=== PATIENT | male | born 1950 | race Caucasian/White ===

== ENCOUNTER 2019-01-07 13:46 | Inpatient (IN) ==
[2019-01-07] MEDS ORDERED: ONDANSETRON 4 MG/2 ML VIAL IV PRN (15:12)
[2019-01-07] MEDS ORDERED: ACETAMINOPHEN 325 MG TABLET PO PRN (15:12)
[2019-01-07] MEDS ORDERED: DEXTROSE 10% 250 ML BAG IV PRN (15:12)
[2019-01-07] MEDS ORDERED: GLUCAGON 1 MG VIAL IM PRN (15:12)
[2019-01-07] MEDS ORDERED: MAGNESIUM SULF RIDER 4 GM in PREMIX 1 EACH IV PRN (15:15)
[2019-01-07] MEDS ORDERED: MAGNESIUM SULF RIDER 2 GM in PREMIX 1 EACH IV PRN (15:15)
[2019-01-07 15:41] LABS: ABG Base Excess -8.6 MMOL/L (-2.5-2.5); ABG HCO3 17.6 MMOL/L (20-26); ABG Oxygen Saturation 98.5 % (95-100); ABG PCO2 26.1 MM HG (35-48); ABG PH 7.371 (7.35-7.45); ABG TCO2 13.1 MMOL/L (23-27); Allen Test Positive; Pt O2 Delivery Device Room Air
[2019-01-07] MEDS: INSULIN LISPRO 100 UNIT/ML SUBCUT SCH ×2 (17:06→22:27)
[2019-01-07 20:09] LABS: Apearance,Urine CLEAR (Clear); Bilirubin,Urine Negative (Negative); Blood, Urine Small mg/dL (Negative); Glucose,Urine (UA) >=500 mg/dL (Negative); Granular Casts,Urine 5 /LPF (0-1); Ketones,Urine 80 mg/dL (Negative); Mucus,Urine Occasional /LPF (Occasional); Nitrite,Urine Negative (Negative); Protein,Urine Negative; RBC,Urine <1 /HPF (0-4); Urine Color Straw (Yellow); Urine Urobilinogen < 2.0 EU/DL (0.2-1.0); WBC,Urine <1 /HPF (0-6)
[2019-01-07 20:11] LABS: Barbiturates Screen,Urine Negative (Negative); Benzodiazepines Screen,Urine Negative (Negative); Cannabinoid Screen,Urine Negative (Negative); Opiate Screen,Urine Negative (Negative); Phencyclidine Screen,Urine Negative (Negative)
[2019-01-07 20:51] LABS: Blood Urea Nitrogen 13 MG/DL (7-18); Calcium 7.4 MG/DL (8.5-10.1); Estimated Glom Filtration Rate 77 ML/MIN; Glucose 492 MG/DL (74-106); Osmolality,Calculated 259.5 MOS/KG (273-304)
[2019-01-07 20:56] LABS: Troponin I < 0.015 NG/ML (0.00-0.045)
[2019-01-07] MEDS: SODIUM CHLORIDE 0.9% 1,000 ML IV SCH (21:28)
[2019-01-07] MEDS: DOCUSATE SODIUM 100 MG CAPSULE PO SCH (22:33)
[2019-01-08] MEDS: SODIUM CHLORIDE 0.9% 1,000 ML IV SCH ×3 (00:57→20:56)
[2019-01-08] MEDS: INSULIN LISPRO 100 UNIT/ML SUBCUT SCH ×5 (01:14→22:12)
[2019-01-08 06:44] LABS: Albumin 2.7 G/DL (3.4-5.0); Bilirubin,Total 0.7 MG/DL (0.2-1.0); Osmolality,Calculated 257.2 MOS/KG (273-304); Total Protein 5.6 G/DL (6.4-8.3)
[2019-01-08 06:57] LABS: Basophils # 0.1 10*3/uL (0.0-0.2); Basophils % 0.5 % (0.0-0.8); Eosinophils # 0.2 10*3/uL (0.0-0.87); Eosinophils % 1.7 % (0.00-10.9); Hemoglobin 12.8 GM/DL (14.0-18.0); Immature Granulocytes % 1.1 %; Lymphocytes # 2.4 10*3/uL (1.4-4.0); Lymphocytes % 25.6 % (21.2-54.2); Mean Corpuscular HGB Conc 37.6 GM/DL (32-36); Mean Corpuscular Volume 90.9 FL (87-102); Monocytes % 10.3 % (1.7-12.7); Neutrophils % 60.8 % (38.7-73.9); Platelet Count 130 T/CUMM (130-400); Red Blood Count 3.74 MC/CUMM (3.8-5.5); Red Cell Distribution Width 11.5 % (9.3-17.3); White Blood Count 9.4 T/CUMM (4-12)
[2019-01-08] MEDS: POTASSIUM CHLORIDE 20 MEQ TABLET PO PRN ×2 (06:58→08:18)
[2019-01-08 07:07] LABS: Microcytosis Slight; Platelet Estimate Adequate
[2019-01-08] MEDS: DOCUSATE SODIUM 100 MG CAPSULE PO SCH ×2 (08:18→22:06)
[2019-01-08] MEDS: PANTOPRAZOLE 40 MG TABLET PO SCH (08:18)
[2019-01-08] MEDS ORDERED: POTASSIUM CHLORIDE 20 MEQ TABLET PO ONE (08:59)
[2019-01-08] MEDS: ASCORBIC ACID 500 MG TABLET PO SCH ×2 (12:42→22:03)
[2019-01-08] MEDS: ASPIRIN EC 325 MG TABLET PO SCH (12:42)
[2019-01-09] MEDS: SODIUM CHLORIDE 0.9% 1,000 ML IV SCH ×4 (01:55→16:48)
[2019-01-09 04:57] LABS: Basophils % 0.6 % (0.0-0.8); Eosinophils # 0.1 10*3/uL (0.0-0.87); Eosinophils % 1.8 % (0.00-10.9); Hematocrit 31.6 VOL% (42.0-52.0); Hemoglobin 11.7 GM/DL (14.0-18.0); Immature Granulocytes % 1.3 %; Immature Granulocytes Absolute 0.08 #; Lymphocytes # 1.8 10*3/uL (1.4-4.0); Lymphocytes % 29.5 % (21.2-54.2); Mean Corpuscular Volume 92.1 FL (87-102); Mean Platelet Volume 12.1 FL (9.6-12.0); Monocytes % 10.9 % (1.7-12.7); Neutrophils % 55.9 % (38.7-73.9); Platelet Count 107 T/CUMM (130-400); Red Blood Count 3.43 MC/CUMM (3.8-5.5); Red Cell Distribution Width 11.6 % (9.3-17.3); White Blood Count 6.2 T/CUMM (4-12)
[2019-01-09 05:22] LABS: Osmolality,Calculated 264.7 MOS/KG (273-304)
[2019-01-09] MEDS: POTASSIUM CHLORIDE 20 MEQ TABLET PO PRN (06:40)
[2019-01-09 07:06] LABS: Albumin 2.4 G/DL (3.4-5.0); Bilirubin,Total 0.6 MG/DL (0.2-1.0); Calcium 7.2 MG/DL (8.5-10.1); Osmolality,Calculated 260.9 MOS/KG (273-304); Total Protein 4.7 G/DL (6.4-8.3)
[2019-01-09] MEDS ORDERED: LACTATED RINGERS 1,000 ML IV SCH (08:00)
[2019-01-09] MEDS: INSULIN LISPRO 100 UNIT/ML SUBCUT SCH ×4 (08:28→22:02)
[2019-01-09] MEDS ORDERED: LIDOCAINE 2% 5 ML VIAL ONE (09:00)
[2019-01-09] MEDS ORDERED: PROPOFOL 200 MG/20 ML VIAL IV ONE (09:00)
[2019-01-09] MEDS ORDERED: GLUCAGON 1 MG VIAL IM PRN (12:14)
[2019-01-09] MEDS ORDERED: DEXTROSE 50% 25 GM/50 ML VIAL IV PRN (12:14)
[2019-01-09] MEDS ORDERED: FLUCONAZOLE 200 MG TABLET PO ONE (12:56)
[2019-01-09] MEDS: POTASSIUM CHLORIDE 20 MEQ TABLET PO SCH ×3 (15:06→22:02)
[2019-01-09] MEDS: DOCUSATE SODIUM 100 MG CAPSULE PO SCH ×2 (15:15→22:02)
[2019-01-09] MEDS: ASPIRIN EC 325 MG TABLET PO SCH (15:15)
[2019-01-09] MEDS: ROSUVASTATIN 20 MG TABLET PO SCH (15:15)
[2019-01-09] MEDS: ASCORBIC ACID 500 MG TABLET PO SCH ×2 (15:16→22:02)
[2019-01-09] MEDS: PANTOPRAZOLE 40 MG TABLET PO SCH (15:16)
[2019-01-09] MEDS: glipiZIDE 10 MG TABLET PO SCH (16:46)
[2019-01-10] MEDS: SODIUM CHLORIDE 0.9% 1,000 ML IV SCH ×2 (00:50→08:04)
[2019-01-10 07:02] LABS: Basophils # 0.1 10*3/uL (0.0-0.2); Basophils % 0.9 % (0.0-0.8); Eosinophils # 0.1 10*3/uL (0.0-0.87); Eosinophils % 1.9 % (0.00-10.9); Hemoglobin 11.6 GM/DL (14.0-18.0); Immature Granulocytes % 1.5 %; Immature Granulocytes Absolute 0.09 #; Lymphocytes # 1.7 10*3/uL (1.4-4.0); Lymphocytes % 29.6 % (21.2-54.2); Mean Corpuscular HGB Conc 36.3 GM/DL (32-36); Mean Corpuscular Volume 94.7 FL (87-102); Mean Platelet Volume 12.2 FL (9.6-12.0); Monocytes % 11.8 % (1.7-12.7); Neutrophils % 54.3 % (38.7-73.9); Platelet Count 107 T/CUMM (130-400); Red Blood Count 3.38 MC/CUMM (3.8-5.5); White Blood Count 5.9 T/CUMM (4-12)
[2019-01-10 07:22] LABS: Calcium 7.3 MG/DL (8.5-10.1); Osmolality,Calculated 273.1 MOS/KG (273-304)
[2019-01-10] MEDS: ASPIRIN EC 325 MG TABLET PO SCH (08:05)
[2019-01-10] MEDS: glipiZIDE 10 MG TABLET PO SCH ×2 (08:05→18:26)
[2019-01-10] MEDS: DOCUSATE SODIUM 100 MG CAPSULE PO SCH ×2 (08:05→21:22)
[2019-01-10] MEDS: ROSUVASTATIN 20 MG TABLET PO SCH (08:05)
[2019-01-10] MEDS: INSULIN LISPRO 100 UNIT/ML SUBCUT SCH ×4 (08:05→21:22)
[2019-01-10] MEDS: FLUCONAZOLE 100 MG TABLET PO SCH (08:06)
[2019-01-10] MEDS: ASCORBIC ACID 500 MG TABLET PO SCH ×2 (08:06→21:22)
[2019-01-10] MEDS: POTASSIUM CHLORIDE 20 MEQ TABLET PO SCH ×3 (08:06→21:22)
[2019-01-10] MEDS: PANTOPRAZOLE 40 MG TABLET PO SCH (08:06)
[2019-01-10] MEDS: APIXABAN 5 MG TABLET PO SCH ×2 (14:18→21:22)
[2019-01-11 05:23] LABS: Basophils % 0.7 % (0.0-0.8); Eosinophils # 0.2 10*3/uL (0.0-0.87); Eosinophils % 2.7 % (0.00-10.9); Hematocrit 32.3 VOL% (42.0-52.0); Hemoglobin 11.7 GM/DL (14.0-18.0); Immature Granulocytes Absolute 0.06 #; Lymphocytes # 1.6 10*3/uL (1.4-4.0); Lymphocytes % 26.2 % (21.2-54.2); Mean Corpuscular HGB Conc 36.2 GM/DL (32-36); Mean Corpuscular Volume 94.2 FL (87-102); Mean Platelet Volume 12.3 FL (9.6-12.0); Monocytes % 13.1 % (1.7-12.7); Neutrophils % 56.3 % (38.7-73.9); Platelet Count 119 T/CUMM (130-400); Red Blood Count 3.43 MC/CUMM (3.8-5.5); Red Cell Distribution Width 11.9 % (9.3-17.3)
[2019-01-11 05:44] LABS: Calcium 7.5 MG/DL (8.5-10.1); Osmolality,Calculated 274.2 MOS/KG (273-304)
[2019-01-11 05:49] LABS: Albumin 2.4 G/DL (3.4-5.0); Bilirubin,Direct 0.16 MG/DL (0.0-0.20); Bilirubin,Indirect 0.4 MG/DL (0.0-1.0); Bilirubin,Total 0.6 MG/DL (0.2-1.0); Total Protein 5.2 G/DL (6.4-8.3)
[2019-01-11] MEDS ORDERED: FLECAINIDE 50 MG TABLET PO SCH (09:00)
[2019-01-11] MEDS: INSULIN LISPRO 100 UNIT/ML SUBCUT SCH ×2 (09:47→11:52)
[2019-01-11] MEDS: ASPIRIN EC 325 MG TABLET PO SCH (09:48)
[2019-01-11] MEDS: glipiZIDE 10 MG TABLET PO SCH (09:48)
[2019-01-11] MEDS: FLUCONAZOLE 100 MG TABLET PO SCH (09:48)
[2019-01-11] MEDS: PANTOPRAZOLE 40 MG TABLET PO SCH (09:48)
[2019-01-11] MEDS: APIXABAN 5 MG TABLET PO SCH (09:48)
[2019-01-11] MEDS: ASCORBIC ACID 500 MG TABLET PO SCH (09:48)
[2019-01-11] MEDS: ROSUVASTATIN 20 MG TABLET PO SCH (09:48)
[2019-01-11] MEDS: POTASSIUM CHLORIDE 20 MEQ TABLET PO SCH (09:48)
[2019-01-11] MEDS: DOCUSATE SODIUM 100 MG CAPSULE PO SCH (09:48)
[2019-01-11 11:57] VITALS: BP 113/81
== END 2019-01-11 13:52 | disposition home or self-care (01) | DRG 638 ==
LOC: N.2W → N.TELES 16:59 → MERGE 01-08 09:14
PROVIDERS: ADMIT Family Medicine; ATTEND Family Medicine

== ENCOUNTER 2019-01-15 10:26 | Inpatient (IN) ==
[2019-01-15] MEDS ORDERED: AMIODARONE INJ 300 MG in DEXTROSE 5% 100 ML IV ONE (10:32)
[2019-01-15] MEDS ORDERED: MAGNESIUM SULF RIDER 2 GM in PREMIX 1 EACH IV STA (10:33)
[2019-01-15] MEDS ORDERED: AMIODARONE 450 MG/9 ML VIAL IV ONE (10:35)
[2019-01-15 10:39] LABS: Basophils # 0.1 10*3/uL (0.0-0.2); Basophils % 0.6 % (0.0-0.8); Eosinophils # 0.1 10*3/uL (0.0-0.87); Eosinophils % 1.1 % (0.00-10.9); Hematocrit 40.9 VOL% (42.0-52.0); Hemoglobin 13.1 GM/DL (14.0-18.0); Immature Granulocytes Absolute 0.36 #; Lymphocytes # 4.2 10*3/uL (1.4-4.0); Lymphocytes % 46.2 % (21.2-54.2); Mean Corpuscular Volume 108.5 FL (87-102); Mean Platelet Volume 11.1 FL (9.6-12.0); Monocytes % 11.7 % (1.7-12.7); NRBC # 0.08 10*3/uL; Neutrophils % 36.4 % (38.7-73.9); Platelet Count 154 T/CUMM (130-400); Red Blood Count 3.77 MC/CUMM (3.8-5.5); Red Cell Distribution Width 13.2 % (9.3-17.3)
[2019-01-15 11:00] LABS: Atypical Lymphocytes Few; Band Neutrophils 2 % (0-10); Eosinophils 1 % (0-10); Lymphocytes 55 % (20-55); Macrocytosis Slight; Nucleated Red Blood Cells 3 (0-5); Segmented Neutrophils 36 % (50-85); Total Cells Counted 100
[2019-01-15] MEDS ORDERED: AMIODARONE INJ 450 MG in DEXTROSE 5% 241 ML IV SCH (11:00)
[2019-01-15 11:20] LABS: Apearance,Urine CLEAR (Clear); Bilirubin,Urine Negative (Negative); Blood, Urine Negative (Negative); Glucose,Urine (UA) >=500 mg/dL (Negative); Hyaline Casts,Urine 1 /LPF (0-3); Ketones,Urine Negative (Negative); Nitrite,Urine Negative (Negative); Protein,Urine Negative; RBC,Urine 1 /HPF (0-4); Sperm,Urine Few /HPF (Negative); Urine Color Yellow (Yellow); Urine Specific Gravity 1.017 (1.001-1.035); Urine Urobilinogen < 2.0 EU/DL (0.2-1.0); WBC,Urine 1 /HPF (0-6)
[2019-01-15] MEDS ORDERED: SODIUM BICARBONATE 50 MEQ/50 ML VIAL IV STA (11:21)
[2019-01-15 11:26] LABS: Barbiturates Screen,Urine Negative (Negative); Benzodiazepines Screen,Urine Negative (Negative); Cannabinoid Screen,Urine Negative (Negative); Opiate Screen,Urine Negative (Negative); Phencyclidine Screen,Urine Negative (Negative)
[2019-01-15 11:30] LABS: Albumin 2.6 G/DL (3.4-5.0); Bilirubin,Total 0.4 MG/DL (0.2-1.0); Osmolality,Calculated 281.2 MOS/KG (273-304); Total Protein 6.1 G/DL (6.4-8.3)
[2019-01-15] MEDS ORDERED: SODIUM CHLORIDE 0.9% 2,000 ML IV STA (11:47)
[2019-01-15] MEDS ORDERED: LIDOCAINE 1% 20 ML VIAL ONE (11:55)
[2019-01-15 12:17] LABS: ABG Base Excess -12.8 MMOL/L (-2.5-2.5); ABG HCO3 14.6 MMOL/L (20-26); ABG Oxygen Saturation 97.5 % (95-100); ABG PCO2 52.7 MM HG (35-48); ABG TCO2 15.9 MMOL/L (23-27)
[2019-01-15 12:24] LABS: ABG PH 7.119 (7.35-7.45)
[2019-01-15] MEDS ORDERED: GLUCAGON 1 MG VIAL IM PRN (12:25)
[2019-01-15] MEDS ORDERED: DEXTROSE 50% 25 GM/50 ML VIAL IV PRN (12:25)
[2019-01-15] MEDS ORDERED: TIROFIBAN 5,000 MCG/100 ML PREMIX IV ONE (12:37)
[2019-01-15] MEDS ORDERED: ENOXAPARIN 30 MG/0.3 ML SYRINGE ONE (12:37)
[2019-01-15] MEDS: CISATRACURIUM 200 MG in SODIUM CHLORIDE 0.9% 180 ML IV SCH (14:10)
[2019-01-15] MEDS: PROPOFOL 1,000 MG/100 ML BOTTLE IV SCH (14:11)
[2019-01-15] MEDS: NOREPINEPHRINE 8 MG in SODIUM CHLORIDE 0.9% 242 ML IV PRN ×2 (14:12→16:12)
[2019-01-15] MEDS: fentaNYL INJ 1,250 MCG in SODIUM CHLORIDE 0.9% 225 ML IV PRN (14:12)
[2019-01-15 14:29] LABS: CKMB % 3.9 %
[2019-01-15 14:34] LABS: Troponin I 1.09 NG/ML (0.00-0.045)
[2019-01-15] MEDS ORDERED: MAGNESIUM SULF RIDER 2 GM in PREMIX 1 EACH IV ONE (14:40)
[2019-01-15] MEDS ORDERED: MAGNESIUM SULF RIDER 2 GM in PREMIX 1 EACH IV PRN (14:44)
[2019-01-15] MEDS ORDERED: MAGNESIUM SULF RIDER 1 GM in PREMIX 1 EACH IV PRN (14:48)
[2019-01-15] MEDS ORDERED: PNEUMOCOCCAL VACCINE (13 VALENT) 0.5 ML SYRINGE IM ONE (14:55)
[2019-01-15 15:28] LABS: INR 1.2; PT Patient Result 12.7 SECS (9.6-12.2); Partial Thromboplastin Time 34.7 SECS (20.8-36.0)
[2019-01-15 15:56] LABS: Alcohol Patient Result Negative (Negative)
[2019-01-15 16:17] LABS: Basophils # 0.1 10*3/uL (0.0-0.2); Basophils % 0.3 % (0.0-0.8); Eosinophils % 0.1 % (0.00-10.9); Hematocrit 41.4 VOL% (42.0-52.0); Immature Granulocytes % 1.1 %; Immature Granulocytes Absolute 0.21 #; Lymphocytes # 1.2 10*3/uL (1.4-4.0); Lymphocytes % 6.2 % (21.2-54.2); Mean Corpuscular HGB Conc 33.8 GM/DL (32-36); Mean Corpuscular Volume 100.7 FL (87-102); Mean Platelet Volume 10.9 FL (9.6-12.0); Monocytes % 10.3 % (1.7-12.7); Platelet Count 208 T/CUMM (130-400); Red Blood Count 4.11 MC/CUMM (3.8-5.5); Red Cell Distribution Width 13.3 % (9.3-17.3); White Blood Count 19.3 T/CUMM (4-12)
[2019-01-15] MEDS: INSULIN REGULAR 100 UNIT/ML IV SCH ×3 (16:20→20:24)
[2019-01-15] MEDS: PANTOPRAZOLE 40 MG VIAL IV SCH (16:21)
[2019-01-15] MEDS: MINERAL OIL/PETROLATUM OPH OINT 3.5 GM TUBE BOTH EYES SCH ×2 (16:22→22:01)
[2019-01-15 17:05] LABS: CKMB % 4.4 %
[2019-01-15 17:10] LABS: Troponin I 2.33 NG/ML (0.00-0.045)
[2019-01-15 17:15] LABS: Calcium 8.2 MG/DL (8.5-10.1); Osmolality,Calculated 295.4 MOS/KG (273-304)
[2019-01-15] MEDS: AMIODARONE INJ 450 MG in DEXTROSE 5% 241 ML IV SCH (17:42)
[2019-01-15] MEDS ORDERED: PHENYLEPHRINE DRIP 40 MG/250 ML PREMIX IV PRN (18:16)
[2019-01-15] MEDS ORDERED: PHENYLEPHRINE DRIP 40 MG/250 ML PREMIX IV ONE (18:21)
[2019-01-15] MEDS ORDERED: DOPamine 800 MG/250 ML PREMIX IV ONE (19:14)
[2019-01-15] MEDS ORDERED: DOPamine 800 MG/250 ML PREMIX IV PRN (19:15)
[2019-01-15] MEDS ORDERED: SODIUM CHLORIDE 0.9% 1,000 ML IV ONE (19:15)
[2019-01-15 19:39] LABS: ABG Base Excess -5.4 MMOL/L (-2.5-2.5); ABG HCO3 19.8 MMOL/L (20-26); ABG Oxygen Saturation 87.9 % (95-100); ABG PCO2 45.5 MM HG (35-48); ABG PH 7.282 (7.35-7.45); ABG TCO2 19.1 MMOL/L (23-27)
[2019-01-15] MEDS ORDERED: HYDROCORTISONE 100 MG VIAL ONE (19:40)
[2019-01-15] MEDS ORDERED: ALBUMIN 25% 25 GM in PREMIX 1 EACH IV ONE (19:42)
[2019-01-15] MEDS: HYDROCORTISONE 100 MG VIAL IV SCH (19:45)
[2019-01-15 19:58] LABS: CKMB % 5.5 %
[2019-01-15 20:07] LABS: Troponin I 4.65 NG/ML (0.00-0.045)
[2019-01-15] MEDS ORDERED: CALCIUM GLUCONATE 2,000 MG in SODIUM CHLORIDE 0.9% 100 ML IV ONE (20:11)
[2019-01-15] MEDS: NOREPINEPHRINE 16 MG in SODIUM CHLORIDE 0.9% 234 ML IV PRN (20:19)
[2019-01-15] MEDS: PHENYLEPHRINE INJ 160 MG in SODIUM CHLORIDE 0.9% 234 ML IV PRN (20:34)
[2019-01-15 20:48] LABS: Calcium 7.2 MG/DL (8.5-10.1)
[2019-01-15 20:53] LABS: CKMB % 5.8 %
[2019-01-15 20:55] LABS: Troponin I 4.98 NG/ML (0.00-0.045)
[2019-01-15 20:57] LABS: Basophils % 0.2 % (0.0-0.8); Eosinophils % 0.1 % (0.00-10.9); Hematocrit 33.7 VOL% (42.0-52.0); Hemoglobin 11.4 GM/DL (14.0-18.0); Immature Granulocytes % 0.7 %; Immature Granulocytes Absolute 0.13 #; Lymphocytes # 1.7 10*3/uL (1.4-4.0); Lymphocytes % 9.3 % (21.2-54.2); Mean Corpuscular HGB Conc 33.8 GM/DL (32-36); Mean Corpuscular Volume 101.8 FL (87-102); Mean Platelet Volume 10.8 FL (9.6-12.0); Monocytes % 12.3 % (1.7-12.7); NRBC # 0.03 10*3/uL; Neutrophils % 77.4 % (38.7-73.9); Platelet Count 193 T/CUMM (130-400); Red Blood Count 3.31 MC/CUMM (3.8-5.5); Red Cell Distribution Width 13.2 % (9.3-17.3); White Blood Count 18.3 T/CUMM (4-12)
[2019-01-15 21:10] LABS: Albumin 2.3 G/DL (3.4-5.0); Bilirubin,Total 0.6 MG/DL (0.2-1.0); Calcium 7.7 MG/DL (8.5-10.1); Osmolality,Calculated 300.3 MOS/KG (273-304); Total Protein 4.8 G/DL (6.4-8.3)
[2019-01-15] MEDS: POTASSIUM CHLORIDE RIDER 20 MEQ in PREMIX 1 EACH IV PRN ×3 (21:29→23:52)
[2019-01-15 22:10] LABS: Basophils % 0.1 % (0.0-0.8); Eosinophils % 0.1 % (0.00-10.9); Hematocrit 34.3 VOL% (42.0-52.0); Hemoglobin 11.5 GM/DL (14.0-18.0); Immature Granulocytes % 0.6 %; Immature Granulocytes Absolute 0.09 #; Lymphocytes % 6.7 % (21.2-54.2); Mean Corpuscular HGB Conc 33.5 GM/DL (32-36); Mean Corpuscular Volume 103.3 FL (87-102); Mean Platelet Volume 10.8 FL (9.6-12.0); Monocytes % 10.5 % (1.7-12.7); NRBC # 0.02 10*3/uL; Platelet Count 155 T/CUMM (130-400); Red Blood Count 3.32 MC/CUMM (3.8-5.5); Red Cell Distribution Width 13.4 % (9.3-17.3); White Blood Count 15.6 T/CUMM (4-12)
[2019-01-15 22:15] LABS: INR 1.2; PT Patient Result 12.7 SECS (9.6-12.2); Partial Thromboplastin Time 31.2 SECS (20.8-36.0)
[2019-01-15] MEDS ORDERED: INSULIN REGULAR 100 UNIT/ML IV ONE (22:18)
[2019-01-16] MEDS: INSULIN REGULAR 100 UNIT/ML IV SCH ×3 (00:17→08:54)
[2019-01-16] MEDS: fentaNYL INJ 1,250 MCG in SODIUM CHLORIDE 0.9% 225 ML IV PRN ×3 (00:34→06:00)
[2019-01-16] MEDS: POTASSIUM CHLORIDE RIDER 10 MEQ in PREMIX 1 EACH IV PRN ×7 (00:49→18:23)
[2019-01-16] MEDS ORDERED: MEPERIDINE 25 MG/1 ML VIAL IV PRN (01:34)
[2019-01-16] MEDS: INSULIN REGULAR DRIP 100 ML IV PRN ×3 (01:47→20:40)
[2019-01-16] MEDS: CISATRACURIUM 200 MG in SODIUM CHLORIDE 0.9% 180 ML IV SCH ×3 (02:46→15:16)
[2019-01-16] MEDS: POTASSIUM CHLORIDE RIDER 20 MEQ in PREMIX 1 EACH IV PRN ×3 (03:40→16:19)
[2019-01-16] MEDS: PROPOFOL 1,000 MG/100 ML BOTTLE IV SCH ×3 (03:53→19:34)
[2019-01-16 04:24] LABS: ABG Base Excess -9.3 MMOL/L (-2.5-2.5); ABG PCO2 43.7 MM HG (35-48); ABG PH 7.228 (7.35-7.45); ABG PO2 75.9 MM HG (80-95); ABG TCO2 16.5 MMOL/L (23-27)
[2019-01-16] MEDS: PHENYLEPHRINE INJ 160 MG in SODIUM CHLORIDE 0.9% 234 ML IV PRN ×2 (04:28→14:57)
[2019-01-16 04:39] LABS: Basophils % 0.2 % (0.0-0.8); Hematocrit 33.5 VOL% (42.0-52.0); Hemoglobin 11.2 GM/DL (14.0-18.0); Immature Granulocytes % 0.7 %; Immature Granulocytes Absolute 0.12 #; Lymphocytes # 0.9 10*3/uL (1.4-4.0); Lymphocytes % 5.2 % (21.2-54.2); Mean Corpuscular HGB Conc 33.4 GM/DL (32-36); Mean Corpuscular Volume 103.1 FL (87-102); Mean Platelet Volume 11.1 FL (9.6-12.0); Monocytes % 9.1 % (1.7-12.7); Neutrophils % 84.8 % (38.7-73.9); Platelet Count 163 T/CUMM (130-400); Red Blood Count 3.25 MC/CUMM (3.8-5.5); Red Cell Distribution Width 13.5 % (9.3-17.3); White Blood Count 17.1 T/CUMM (4-12)
[2019-01-16 04:47] LABS: Calcium 7.4 MG/DL (8.5-10.1); Osmolality,Calculated 311.4 MOS/KG (273-304)
[2019-01-16 04:48] LABS: INR 1.1; PT Patient Result 11.8 SECS (9.6-12.2); Partial Thromboplastin Time 29.4 SECS (20.8-36.0)
[2019-01-16] MEDS: NOREPINEPHRINE 16 MG in SODIUM CHLORIDE 0.9% 234 ML IV PRN ×2 (05:31→21:19)
[2019-01-16] MEDS: HYDROCORTISONE 100 MG VIAL IV SCH ×3 (06:12→20:36)
[2019-01-16] MEDS: CEFEPIME 1,000 MG in SODIUM CHLORIDE 0.9% 100 ML IV SCH ×4 (07:09→23:40)
[2019-01-16] MEDS: MINERAL OIL/PETROLATUM OPH OINT 3.5 GM TUBE BOTH EYES SCH ×3 (08:39→20:42)
[2019-01-16] MEDS: PANTOPRAZOLE 40 MG VIAL IV SCH (08:40)
[2019-01-16] MEDS: AMIODARONE INJ 450 MG in DEXTROSE 5% 241 ML IV SCH (08:50)
[2019-01-16] MEDS: SODIUM BICARB INJ 100 MEQ in SODIUM CHLORIDE 0.45% 1,000 ML IV SCH (09:06)
[2019-01-16] MEDS: fentaNYL INJ 2,500 MCG in SODIUM CHLORIDE 0.9% 450 ML IV PRN ×3 (09:10→23:06)
[2019-01-16 09:39] LABS: Basophils % 0.2 % (0.0-0.8); Hematocrit 33.3 VOL% (42.0-52.0); Hemoglobin 11.1 GM/DL (14.0-18.0); Immature Granulocytes % 0.6 %; Immature Granulocytes Absolute 0.09 #; Mean Corpuscular HGB Conc 33.3 GM/DL (32-36); Mean Corpuscular Volume 102.5 FL (87-102); Monocytes % 6.4 % (1.7-12.7); Neutrophils % 86.8 % (38.7-73.9); Platelet Count 167 T/CUMM (130-400); Red Blood Count 3.25 MC/CUMM (3.8-5.5); Red Cell Distribution Width 13.7 % (9.3-17.3); White Blood Count 15.9 T/CUMM (4-12)
[2019-01-16 09:49] LABS: INR 1.1; PT Patient Result 11.5 SECS (9.6-12.2); Partial Thromboplastin Time 29.4 SECS (20.8-36.0)
[2019-01-16 10:13] LABS: CKMB % 8.9 %
[2019-01-16 10:14] LABS: Calcium 7.2 MG/DL (8.5-10.1)
[2019-01-16 10:16] LABS: Troponin I 2.8 NG/ML (0.00-0.045)
[2019-01-16 12:57] LABS: ABG Base Excess -9.1 MMOL/L (-2.5-2.5); ABG HCO3 15.4 MMOL/L (20-26); ABG PH 7.343 (7.35-7.45); ABG PO2 121.7 MM HG (80-95); ABG TCO2 16.3 MMOL/L (23-27)
[2019-01-16 15:48] LABS: Basophils % 0.1 % (0.0-0.8); Hematocrit 30.7 VOL% (42.0-52.0); Hemoglobin 10.5 GM/DL (14.0-18.0); Immature Granulocytes % 0.6 %; Immature Granulocytes Absolute 0.08 #; Lymphocytes # 1.1 10*3/uL (1.4-4.0); Lymphocytes % 7.2 % (21.2-54.2); Mean Corpuscular HGB Conc 34.2 GM/DL (32-36); Mean Corpuscular Volume 101.3 FL (87-102); Mean Platelet Volume 10.8 FL (9.6-12.0); Monocytes % 7.4 % (1.7-12.7); Neutrophils % 84.7 % (38.7-73.9); Platelet Count 162 T/CUMM (130-400); Red Blood Count 3.03 MC/CUMM (3.8-5.5); Red Cell Distribution Width 13.9 % (9.3-17.3); White Blood Count 14.5 T/CUMM (4-12)
[2019-01-16 15:58] LABS: INR 1.1; Partial Thromboplastin Time 30.6 SECS (20.8-36.0)
[2019-01-16 16:02] LABS: Calcium 7.5 MG/DL (8.5-10.1); Osmolality,Calculated 308.4 MOS/KG (273-304)
[2019-01-16] MEDS ORDERED: FUROSEMIDE 20 MG/2 ML VIAL IV ONE (16:10)
[2019-01-16 21:35] LABS: Basophils % 0.1 % (0.0-0.8); Hemoglobin 10.6 GM/DL (14.0-18.0); Immature Granulocytes % 0.7 %; Immature Granulocytes Absolute 0.11 #; Mean Corpuscular HGB Conc 34.2 GM/DL (32-36); Mean Corpuscular Volume 101.3 FL (87-102); Mean Platelet Volume 10.7 FL (9.6-12.0); NRBC # 0.02 10*3/uL; Neutrophils % 84.2 % (38.7-73.9); Platelet Count 170 T/CUMM (130-400); Red Blood Count 3.06 MC/CUMM (3.8-5.5); Red Cell Distribution Width 14.1 % (9.3-17.3); White Blood Count 16.8 T/CUMM (4-12)
[2019-01-16 21:46] LABS: INR 1.1; Partial Thromboplastin Time 31.4 SECS (20.8-36.0)
[2019-01-16 21:52] LABS: Calcium 7.4 MG/DL (8.5-10.1); Osmolality,Calculated 306.4 MOS/KG (273-304)
[2019-01-16] MEDS ORDERED: POTASSIUM CHLORIDE RIDER 20 MEQ in PREMIX 1 EACH IV PRN (22:15)
[2019-01-16] MEDS ORDERED: POTASSIUM CHLORIDE RIDER 10 MEQ in PREMIX 1 EACH IV PRN (22:15)
[2019-01-17] MEDS: INSULIN REGULAR DRIP 100 ML IV PRN ×2 (01:25→05:20)
[2019-01-17] MEDS: AMIODARONE INJ 450 MG in DEXTROSE 5% 241 ML IV SCH ×2 (01:52→18:39)
[2019-01-17] MEDS: PHENYLEPHRINE INJ 160 MG in SODIUM CHLORIDE 0.9% 234 ML IV PRN ×2 (02:01→14:30)
[2019-01-17 03:01] LABS: ABG Base Excess -6.6 MMOL/L (-2.5-2.5); ABG Oxygen Saturation 99.3 % (95-100); ABG PCO2 40.2 MM HG (35-48); ABG PH 7.294 (7.35-7.45); ABG TCO2 17.7 MMOL/L (23-27)
[2019-01-17 03:06] LABS: Basophils % 0.1 % (0.0-0.8); Hematocrit 30.8 VOL% (42.0-52.0); Hemoglobin 10.5 GM/DL (14.0-18.0); Immature Granulocytes % 0.7 %; Immature Granulocytes Absolute 0.12 #; Lymphocytes # 1.1 10*3/uL (1.4-4.0); Lymphocytes % 5.9 % (21.2-54.2); Mean Corpuscular HGB Conc 34.1 GM/DL (32-36); Mean Platelet Volume 10.6 FL (9.6-12.0); NRBC # 0.06 10*3/uL; Neutrophils % 84.3 % (38.7-73.9); Platelet Count 169 T/CUMM (130-400); Red Blood Count 3.05 MC/CUMM (3.8-5.5); Red Cell Distribution Width 14.4 % (9.3-17.3)
[2019-01-17 03:32] LABS: CKMB % 12.4 %
[2019-01-17 03:35] LABS: Troponin I 1.61 NG/ML (0.00-0.045)
[2019-01-17 03:41] LABS: Alanine Aminotransferase 59 U/L (16-61); Albumin 2.2 G/DL (3.4-5.0); Alkaline Phosphatase 74 U/L (45-117); Aspartate Amino Transferase 149 U/L (0-37); Bilirubin,Total < 0.39 MG/DL (0.2-1.0); Calcium 7.1 MG/DL (8.5-10.1)
[2019-01-17 03:42] LABS: Blood Urea Nitrogen 14 MG/DL (7-18); Estimated Glom Filtration Rate 83 ML/MIN; Glucose 223 MG/DL (74-106); Osmolality,Calculated 306.9 MOS/KG (273-304)
[2019-01-17] MEDS: HYDROCORTISONE 100 MG VIAL IV SCH ×3 (03:44→21:00)
[2019-01-17 04:04] LABS: INR 1.1; PT Patient Result 11.8 SECS (9.6-12.2); Partial Thromboplastin Time 31.4 SECS (20.8-36.0)
[2019-01-17] MEDS: CEFEPIME 1,000 MG in SODIUM CHLORIDE 0.9% 100 ML IV SCH ×3 (05:57→18:38)
[2019-01-17] MEDS: SODIUM BICARB INJ 100 MEQ in SODIUM CHLORIDE 0.45% 1,000 ML IV SCH (07:23)
[2019-01-17] MEDS: NOREPINEPHRINE 16 MG in SODIUM CHLORIDE 0.9% 234 ML IV PRN ×2 (08:15→19:08)
[2019-01-17] MEDS ORDERED: FUROSEMIDE 40 MG/4 ML VIAL IV ONE (08:21)
[2019-01-17] MEDS: MINERAL OIL/PETROLATUM OPH OINT 3.5 GM TUBE BOTH EYES SCH ×3 (08:24→21:06)
[2019-01-17] MEDS: PANTOPRAZOLE 40 MG VIAL IV SCH (08:24)
[2019-01-17 09:44] LABS: ABG Base Excess -4.7 MMOL/L (-2.5-2.5); ABG HCO3 20.5 MMOL/L (20-26); ABG Oxygen Saturation 99.4 % (95-100); ABG PCO2 36.4 MM HG (35-48); ABG PH 7.354 (7.35-7.45); ABG TCO2 18.4 MMOL/L (23-27); Basophils % 0.1 % (0.0-0.8); Hematocrit 30.6 VOL% (42.0-52.0); Hemoglobin 10.4 GM/DL (14.0-18.0); Immature Granulocytes % 0.5 %; Lymphocytes # 0.9 10*3/uL (1.4-4.0); Lymphocytes % 4.9 % (21.2-54.2); Mean Corpuscular Volume 100.7 FL (87-102); Mean Platelet Volume 10.4 FL (9.6-12.0); Monocytes % 11.2 % (1.7-12.7); NRBC # 0.09 10*3/uL; Neutrophils % 83.3 % (38.7-73.9); Platelet Count 170 T/CUMM (130-400); Red Blood Count 3.04 MC/CUMM (3.8-5.5); Red Cell Distribution Width 14.3 % (9.3-17.3); White Blood Count 18.9 T/CUMM (4-12)
[2019-01-17 09:52] LABS: INR 1.1; PT Patient Result 11.8 SECS (9.6-12.2); Partial Thromboplastin Time 29.2 SECS (20.8-36.0)
[2019-01-17 10:08] LABS: Calcium 7.2 MG/DL (8.5-10.1); Osmolality,Calculated 304.6 MOS/KG (273-304)
[2019-01-17 10:12] LABS: Band Neutrophils 2 % (0-10); Lymphocytes 10 % (20-55); Polychromasia Slight; Segmented Neutrophils 79 % (50-85); Total Cells Counted 100
[2019-01-17 10:13] LABS: Macrocytosis Slight
[2019-01-17 10:14] LABS: Platelet Estimate Adequate
[2019-01-17] MEDS: PROPOFOL 1,000 MG/100 ML BOTTLE IV SCH (12:43)
[2019-01-17] MEDS: CISATRACURIUM 200 MG in SODIUM CHLORIDE 0.9% 180 ML IV SCH (12:43)
[2019-01-17] MEDS: INSULIN REGULAR 100 UNIT/ML SUBCUT SCH ×3 (13:58→22:38)
[2019-01-17] MEDS ORDERED: FAT EMULSION 20% 250 ML IV SCH (14:00)
[2019-01-17 16:49] LABS: Basophils % 0.1 % (0.0-0.8); Hematocrit 28.2 VOL% (42.0-52.0); Hemoglobin 9.9 GM/DL (14.0-18.0); Immature Granulocytes % 0.7 %; Immature Granulocytes Absolute 0.14 #; Lymphocytes # 0.7 10*3/uL (1.4-4.0); Lymphocytes % 3.4 % (21.2-54.2); Mean Corpuscular HGB Conc 35.1 GM/DL (32-36); Mean Corpuscular Volume 98.3 FL (87-102); Mean Platelet Volume 10.9 FL (9.6-12.0); Monocytes % 11.4 % (1.7-12.7); NRBC # 0.09 10*3/uL; Neutrophils % 84.4 % (38.7-73.9); Platelet Count 169 T/CUMM (130-400); Red Blood Count 2.87 MC/CUMM (3.8-5.5); Red Cell Distribution Width 14.4 % (9.3-17.3); White Blood Count 20.2 T/CUMM (4-12)
[2019-01-17 17:00] LABS: INR 1.1; PT Patient Result 12.4 SECS (9.6-12.2); Partial Thromboplastin Time 28.3 SECS (20.8-36.0)
[2019-01-17] MEDS ORDERED: DEXTROSE 10% 1,000 ML IV PRN (17:00)
[2019-01-17] MEDS ORDERED: TRACE ELEMENTS (5) 1 ML, MULTIVITAMIN INJ 10 ML in AMINO ACIDS/DEXT/LYTES 5-20% 2,000 ML IV SCH (17:00)
[2019-01-17 17:12] LABS: Calcium 7.2 MG/DL (8.5-10.1); Osmolality,Calculated 309.6 MOS/KG (273-304)
[2019-01-17 17:21] LABS: Hypochromasia Slight; Lymphocytes 3 % (20-55); Macrocytosis Slight; Nucleated Red Blood Cells 1 (0-5); Platelet Estimate Normal; Segmented Neutrophils 89 % (50-85); Total Cells Counted 100
[2019-01-17 22:20] LABS: Basophils % 0.1 % (0.0-0.8); Hemoglobin 9.6 GM/DL (14.0-18.0); Immature Granulocytes % 0.8 %; Immature Granulocytes Absolute 0.17 #; Lymphocytes # 0.8 10*3/uL (1.4-4.0); Lymphocytes % 3.6 % (21.2-54.2); Mean Corpuscular HGB Conc 34.3 GM/DL (32-36); Mean Corpuscular Volume 103.3 FL (87-102); Mean Platelet Volume 11.1 FL (9.6-12.0); Monocytes % 9.2 % (1.7-12.7); NRBC # 0.22 10*3/uL; Neutrophils % 86.3 % (38.7-73.9); Platelet Count 158 T/CUMM (130-400); Red Blood Count 2.71 MC/CUMM (3.8-5.5); Red Cell Distribution Width 14.8 % (9.3-17.3); White Blood Count 22.2 T/CUMM (4-12)
[2019-01-17 22:27] LABS: Calcium 7.1 MG/DL (8.5-10.1); Osmolality,Calculated 314.1 MOS/KG (273-304)
[2019-01-17 22:32] LABS: INR 1.2; PT Patient Result 12.5 SECS (9.6-12.2)
[2019-01-17 22:44] LABS: Band Neutrophils 7 % (0-10); Lymphocytes 5 % (20-55); Platelet Estimate Normal; Segmented Neutrophils 87 % (50-85); Total Cells Counted 100
[2019-01-17 22:45] LABS: Hypochromasia Slight; Macrocytosis Slight
[2019-01-17] MEDS ORDERED: INSULIN REGULAR 100 UNIT/ML IV ONE (23:18)
[2019-01-18] MEDS: INSULIN REGULAR DRIP 100 ML IV PRN ×2 (01:02→10:50)
[2019-01-18] MEDS: CEFEPIME 1,000 MG in SODIUM CHLORIDE 0.9% 100 ML IV SCH ×3 (01:20→12:23)
[2019-01-18 04:16] LABS: ABG Base Excess -2.9 MMOL/L (-2.5-2.5); ABG Oxygen Saturation 99.9 % (95-100); ABG PCO2 30.3 MM HG (35-48); ABG PH 7.437 (7.35-7.45); ABG TCO2 18.6 MMOL/L (23-27)
[2019-01-18 04:28] LABS: Basophils % 0.1 % (0.0-0.8); Hemoglobin 8.8 GM/DL (14.0-18.0); Immature Granulocytes % 0.9 %; Immature Granulocytes Absolute 0.18 #; Lymphocytes # 0.9 10*3/uL (1.4-4.0); Lymphocytes % 4.2 % (21.2-54.2); Mean Corpuscular HGB Conc 33.8 GM/DL (32-36); Mean Corpuscular Volume 102.4 FL (87-102); Mean Platelet Volume 11.2 FL (9.6-12.0); Monocytes % 5.3 % (1.7-12.7); NRBC # 0.15 10*3/uL; Neutrophils % 89.5 % (38.7-73.9); Platelet Count 144 T/CUMM (130-400); Red Blood Count 2.54 MC/CUMM (3.8-5.5); Red Cell Distribution Width 14.8 % (9.3-17.3); White Blood Count 21.1 T/CUMM (4-12)
[2019-01-18] MEDS: NOREPINEPHRINE 16 MG in SODIUM CHLORIDE 0.9% 234 ML IV PRN ×2 (04:33→13:55)
[2019-01-18 04:35] LABS: Calcium 7.3 MG/DL (8.5-10.1); Osmolality,Calculated 325.6 MOS/KG (273-304)
[2019-01-18 04:38] LABS: INR 1.1; PT Patient Result 11.7 SECS (9.6-12.2); Partial Thromboplastin Time 29.5 SECS (20.8-36.0)
[2019-01-18 04:51] VITALS: BP 102/57
[2019-01-18 04:52] LABS: Band Neutrophils 1 % (0-10); Lymphocytes 3 % (20-55); Metamyelocytes 2 %; Segmented Neutrophils 90 % (50-85)
[2019-01-18 04:53] LABS: Hypochromasia 1+; Platelet Estimate Normal; Polychromasia 1+
[2019-01-18 04:54] LABS: Total Cells Counted 100
[2019-01-18 04:58] LABS: Prealbumin 7.3 MG/DL (20-40)
[2019-01-18] MEDS: HYDROCORTISONE 100 MG VIAL IV SCH ×2 (05:25→12:23)
[2019-01-18] MEDS: PANTOPRAZOLE 40 MG VIAL IV SCH (08:37)
[2019-01-18] MEDS: MINERAL OIL/PETROLATUM OPH OINT 3.5 GM TUBE BOTH EYES SCH (08:38)
[2019-01-18 09:53] LABS: ABG Base Excess -3.1 MMOL/L (-2.5-2.5); ABG HCO3 21.8 MMOL/L (20-26); ABG Oxygen Saturation 94.3 % (95-100); ABG PH 7.346 (7.35-7.45); ABG PO2 68.6 MM HG (80-95); ABG TCO2 20.5 MMOL/L (23-27)
[2019-01-18 09:58] LABS: Hematocrit 26.6 VOL% (42.0-52.0); Hemoglobin 8.8 GM/DL (14.0-18.0)
[2019-01-18] MEDS: AMIODARONE INJ 450 MG in DEXTROSE 5% 241 ML IV SCH (11:36)
[2019-01-18] MEDS: CISATRACURIUM 200 MG in SODIUM CHLORIDE 0.9% 180 ML IV SCH (12:57)
[2019-01-18] MEDS: PROPOFOL 1,000 MG/100 ML BOTTLE IV SCH (12:57)
[2019-01-18] MEDS ORDERED: AMINO ACIDS IV SCH (17:00)
[2019-01-18] MEDS ORDERED: TRACE ELEMENTS IV SCH (17:00)
[2019-01-18] MEDS ORDERED: [UNRECOGNIZED DRUG - OTHER] IV SCH (17:00)
[2019-01-18] MEDS ORDERED: MULTIVITAMIN IV SCH (17:00)
== END 2019-01-18 14:41 | disposition expired ==
LOC: N.ED 10:26 → EDBD 10:26 → N.EDINP 11:37 → N.CC 12:04
PROVIDERS: ADMIT Family Medicine; ATTEND Family Medicine
PROC: CLCCHCL (ICD-10-PCS; 2019-01-15 12:45)